=== PATIENT | male | born 1995 ===

== ENCOUNTER 2016-05-28 07:51 | Emergency (ER) | payer OTHER ==
--- NOTE | 2016-05-28 08:28 | UC ---
Hand/Wrist HPI - HPI Summary HPI Summary: The patient comes in today for: 1. Right index finger subungual hematoma: Onset: 9 hours ago. Palliative/provocative: Pressure to finger made it worse. Quality: Pressure, throbbing. Region: Right index finger. Severity: 8/10 Time: Constant. Associated symptoms: No bleeding. Previous treatment: Tylenol. * - History Of Current Complaint Chief Complaint: UCUpperExtremity Stated Complaint: CRUSHED FINGER Time Seen by Provider: 05/28/16 08:21 Hx Obtained From: Patient ?: No - Allergies/Home Medications Allergies/Adverse Reactions: Allergies Allergy/AdvReac Type Severity Reaction Status Date / Time No Known Allergies Allergy Verified 05/28/16 07:55 Home Medications: Home Medications Acetaminophen [Tylenol] 325 mg PO SEE INSTRUCTIONS PRN 05/28/16 [History Confirmed 05/28/16] PMH/Surg Hx/FS Hx/Imm Hx Previously Healthy: No Endocrine History Of: Denies: Diabetes, Thyroid Disease, Hyperthyroidism, Hypothyroidism, Dyslipidemia Cardiovascular History Of: Denies: Cardiac Disorders, Hypertension, Pacemaker/ICD, Myocardial Infarction , Congestive Heart Failure, Atrial Fibrillation, Deep Vein Thrombosis, Bleeding Disorders Respiratory History Of: Reports: Asthma - Does not take an inhaler on a regular basis. Denies: COPD, Bronchitis, Pneumonia, Pulmonary Embolism GI/ History Of: Denies: Gastroesophageal Reflux, Ulcer, Gastrointestinal Bleed, Gall Bladder Disease, Kidney Stones, Diverticulitis, Renal Disease, Urosepsis Neurological History Of: Denies: TIA, CVA, Dementia, Seizures, Migraine Psychological History Of: Denies: Anxiety, Depression, Bipolar Disorder, Schizophrenia, Post Traumatic Stress Disorder Cancer History Of: Denies: Lung Cancer, Colorectal Cancer, Breast Cancer, Prostate Cancer, Cervical Cancer Other History Of: Negative For: HIV, Hepatitis B, Hepatitis C, Anticoagulant Therapy - Surgical History Surgical History: Yes Surgery Procedure, Year, and Place: septoplasty - Family History Known Family History: Negative: Cardiac Disease, Hypertension - Social History Occupation: Student Alcohol Use: Weekly Alcohol Amount: weekends Substance Use Type: Marijuana Substance Use Comment - Amount & Last Used: weekends Smoking Status (MU): Never Smoked Tobacco - Immunization History Most Recent Influenza Vaccination: none Review of Systems Constitutional: Negative Skin: Negative Eyes: Negative ENT: Negative Respiratory: Negative Cardiovascular: Negative Gastrointestinal: Negative Genitourinary: Negative All Other Systems Reviewed And Are Negative: Yes Physical Exam Triage Information Reviewed: Yes Appearance: Well-Appearing, No Pain Distress, Well-Nourished Vital Signs: Initial Vital Signs Temp 98.7 F 05/28/16 07:57 Pulse 73 05/28/16 07:57 Resp 18 05/28/16 07:57 BP 129/67 05/28/16 07:57 Pulse Ox 99 05/28/16 07:57 Vital Signs Reviewed: Yes Eyes: Positive: Conjunctiva Clear. Negative: Discharge ENT: Positive: Hearing grossly normal. Negative: Pharyngeal erythema, Nasal congestion, Nasal drainage, TM bulging, TM dull, TM red, Tonsillar swelling, Tonsillar exudate Dental: Negative: Gross Decay/Caries @, Dental Fracture @ Neck: Positive: Supple, Nontender, No Lymphadenopathy. Negative: Nuchal Rigidity Respiratory: Positive: Chest non-tender, No respiratory distress, No accessory muscle use. Negative: Lungs clear, Crackles, Wheezing Cardiovascular: Positive: RRR, No Murmur Abdomen Description: Positive: Nontender, No Organomegaly, Soft. Negative: Distended, Guarding Musculoskeletal: Positive: Strength Intact, ROM Intact, Other: - Right index finger: There is bluish discoloration of the nail. Hot wiring it did produce blood oozing from the opening. There was edema and mild swelling of the pad of the finger. Neurological: Positive: Alert, Muscle Tone Normal Psychological: Positive: Age Appropriate Behavior, Consolable Skin: Positive: Other - Skin tear, right index finger, 3 x 3 mm.. Negative: rashes, breakdown Diagnostics - Radiology No standard instances Xray Interpretation: No Acute Changes Radiology Interpretation Completed By: Radiologist Hand/Wrist Course/Dx - Course Course Of Treatment: The patient had a hole put in the nail. Blood oozed out. There was a skin tear on the pad of the finger which was glued shut which was about 3 mm by 3 mm. He was given a ketorolac injection. Pain dropped from 8/ 10 to 3/10. - Differential Dx/Diagnosis Provider Diagnoses: Subungual hematoma right index finger, and skin tear. Crush injury. Discharge - Discharge Plan Condition: Stable Disposition: HOME Patient Education Materials: Skin Tear (ED), Skin Adhesive Care (ED), Subungual Hematoma (ED) Forms: *School Release Referrals: [facility] [place] PHYSICIAN REFERRAL [Outside] Additional Instructions: Inspect the finger daily. Gently clean. Apply Polysporin (which you can get over the counter without a prescription) and apply bandage. If there is any increase in pain, drainage, swelling or swelling, please be seen sooner. Please see your primary care provider or the student [facility] center next week to see how well you are doing. If you don't have a primary care provider, please contact the physician referral service. If you can't get in timely, please you may come back to see us until you can. If you get worse, please be seen sooner by us or the ER.
[2016-05-28] MEDS ORDERED: Ketorolac INJ* 60 MG/2 ML VIAL IM ONE (08:35)
--- NOTE | 2016-05-28 08:58 | RAD ---
INDICATION: Right second digit pain after crush type injury COMPARISON: None TECHNIQUE: AP, lateral, and oblique views were obtained. FINDINGS: The bony structures, joint spaces, and soft tissues are normal for age. IMPRESSION: NO ACUTE FRACTURE.
== END 2016-05-28 09:41 | disposition home or self-care (01) ==
LOC: UCEAST 07:51
DX: S60.021A Contusion of right index finger without damage to nail, initial encounter (principal); W23.0XXA Caught, crushed, jammed, or pinched between moving objects, initial encounter; Y93.9 Activity, unspecified; Y92.9 Unspecified place or not applicable; F12.90 Cannabis use, unspecified, uncomplicated
CPT/HCPCS: 73140; 96372; 99202; G0463; J1885

== ENCOUNTER 2016-06-03 18:46 | Emergency (ER) | payer OTHER ==
--- NOTE | 2016-06-03 20:29 | RAD ---
INDICATION: Right second finger injury COMPARISON: None TECHNIQUE: AP, lateral, and oblique views were obtained. FINDINGS: There is no acute fracture or dislocation. There is soft tissue swelling about the nailbed. IMPRESSION: NO ACUTE FRACTURE.
[2016-06-03] MEDS ORDERED: Cephalexin CAP* 500 MG PO ONE (21:25)
--- NOTE | 2016-06-03 22:13 | UC ---
clotilde Menjivar Timothy, scribed for Zuri Martin DO on 06/03/16 at 1924 . HPI Wound/Suture Re-check - HPI Summary HPI Summary: Tu Ramachandran is a 20 yo male presenting to [facility] for a recheck of a cut finger for which he was seen on 05/28/16. The area was glued. Pt states he has been changing the bandage, and noticed that the finger is swollen with increased pain to 3/10 ache since yesterday. He also reports fever of 101, and numbness on the posterior aspect of his finger since yesterday. He also reports poor appetite, fatigue, and light NINA since yesterday with mild sore throat and non- productive cough and nausea. He states he does not spend much time outside, and thinks it is very unlikely that he has had any tick exposure. His HMx includes asthma and marijuana use. - History Of Current Complaint Stated Complaint: SOFT TISSUE COMPLAINT Time Seen by Provider: 06/03/16 19:47 Hx Obtained From: Patient Onset/Duration: Sudden Onset, Lasting Days, Still Present Surgical Site: right index finger Severity: Moderate Pain Intensity: 3 Pain Scale Used: 0-10 Numeric - Allergies/Home Medications Allergies/Adverse Reactions: Allergies Allergy/AdvReac Type Severity Reaction Status Date / Time No Known Allergies Allergy Verified 06/03/16 19:03 PMH/Surg Hx/FS Hx/Imm Hx Endocrine History Of: Denies: Diabetes, Thyroid Disease, Hyperthyroidism, Hypothyroidism, Dyslipidemia Cardiovascular History Of: Denies: Cardiac Disorders, Hypertension, Pacemaker/ICD, Myocardial Infarction , Congestive Heart Failure, Atrial Fibrillation, Deep Vein Thrombosis, Bleeding Disorders Respiratory History Of: Reports: Asthma - Does not take an inhaler on a regular basis. Denies: COPD, Bronchitis, Pneumonia, Pulmonary Embolism GI/ History Of: Denies: Gastroesophageal Reflux, Ulcer, Gastrointestinal Bleed, Gall Bladder Disease, Kidney Stones, Diverticulitis, Renal Disease, Urosepsis Neurological History Of: Denies: TIA, CVA, Dementia, Seizures, Migraine Psychological History Of: Denies: Anxiety, Depression, Bipolar Disorder, Schizophrenia, Post Traumatic Stress Disorder Cancer History Of: Denies: Lung Cancer, Colorectal Cancer, Breast Cancer, Prostate Cancer, Cervical Cancer Other History Of: Negative For: HIV, Hepatitis B, Hepatitis C, Anticoagulant Therapy - Surgical History Surgical History: Yes Surgery Procedure, Year, and Place: novoplasty - Family History Known Family History: Negative: Cardiac Disease, Hypertension, Diabetes - Social History Occupation: Student Alcohol Use: Weekly Alcohol Amount: weekends Substance Use Type: Marijuana Substance Use Comment - Amount & Last Used: weekends Smoking Status (MU): Never Smoked Tobacco - Immunization History Most Recent Influenza Vaccination: none Review of Systems Constitutional: Fever, Fatigue Skin: Other - crush injury to finger Eyes: Negative ENT: Sore Throat Respiratory: Negative Cardiovascular: Negative Gastrointestinal: Other - loss of appetite, nausea Genitourinary: Negative Motor: Negative Neurovascular: Negative Musculoskeletal: Edema - right index finger Neurological: Headache, Numbness - right index finger posterior aspect Psychological: Negative All Other Systems Reviewed And Are Negative: Yes Physical Exam Triage Information Reviewed: Yes Appearance: Well-Appearing, No Pain Distress, Well-Nourished Vital Signs: Initial Vital Signs Temp 99.7 F 06/03/16 18:56 Pulse 86 06/03/16 18:56 Resp 20 06/03/16 18:56 BP 110/61 06/03/16 18:56 Pulse Ox 100 06/03/16 18:56 Vital Signs Reviewed: Yes Eyes: Positive: Conjunctiva Clear. Negative: Discharge ENT: Positive: Hearing grossly normal, Pharyngeal erythema, Nasal congestion, TMs normal, Tonsillar swelling. Negative: Tonsillar exudate, Muffled/hoarse voice Neck: Positive: Supple, Nontender Respiratory: Positive: Lungs clear, Normal breath sounds, No respiratory distress, No accessory muscle use Cardiovascular: Positive: RRR, No Murmur Musculoskeletal Exam: Normal Neurological: Positive: Alert, Muscle Tone Normal Psychological Exam: Normal Psychological: Positive: Age Appropriate Behavior Skin: Positive: Other - subungual hematoma s/p release with swelling and redness around nail bed. lac on pad appears all but healed. no drain Diagnostics - Radiology Right index finger XR Xray Interpretation: No Acute Changes - IMPRESSION: NO ACUTE FRACTURE. Radiology Interpretation Completed By: Radiologist Procedures - Procedure Summary Procedure Summary: Release of paronychia was attempted with drawing needle. Drawing needle was used to push back cuticle on right index finger of Pt, however, no drainage was released. Re-Evaluation - Re-Evaluation First Eval Re-Evaluation Time: 20:55 Change: Unchanged Comment: Pt was informed of negative lab and imaging results. He is agreeable to current course of Tx. Course/Dx - Course Course Of Treatment: Tu Ramachandran is a 20 yo male presenting to [facility] with swelling, drainage, and pain increase in his right index finger which was glued after a laceration on 05/28/[address] Lloyd. After clinical examination and negative right index finger X-Ray, negative influenza A & B rapid tests, negative rapid strep test, he will be discharged home with paronychia, febrile illness and appropriate instructions. - Differential Dx - Laceration/Wound Differential Diagnoses: Other - lyme, flu strepparonychia Provider Diagnoses: paronychia, febrile illness Discharge - Discharge Plan Condition: Stable Disposition: HOME Prescriptions: Cephalexin CAP* [Keflex CAP*] 500 mg PO BID #19 cap Patient Education Materials: Paronychia (ED), Lyme Disease (ED) Forms: *School Release Referrals: GLADIS Powell [Medical Doctor] - 2 Days Additional Instructions: As discussed, the cause of your fever and malaise is not entirely clear at this time. Though you do have an infection in your nail bed, an infection of this nature does not adaquately account for does adequately account for your febrile illness. We have tested you for strep and influenza because you do have mild symptoms of cough, sore throat, and nausea. These tests were all negative. Another possibility is that you may have lyme disease but you GI an upper respiratory symptoms make this less likely. At this time, we will do some blood work, if we find any abnormalities you will be contacted. You should follow up here in 2 days for re-evaluation. Follow up sooner if your symptoms worsen or if you develop new ones. WE HAVE INCLUDED SOME INFORMATION ON LYME DISEASE FOR YOUR INFORMATION. YOU ARE BEING GIVEN THE FOLLOWING MED FOR THE INFECTION OF YOUR NAILBED. CEPHALEXIN: The antibiotic you've been prescribed is a member of the cephalosporin class. This type of antibiotic covers a wide variety of infections, including those of the skin, lungs, and urinary tract. It's useful for staph infections. This antibiotic is slightly similar to the penicillin family. In rare cases , a person who is allergic to penicillin will also be allergic to this medication. If you have had a severe allergic reaction to penicillin, and have not taken this antibiotic since that time, notify your doctor. Antibiotics which cover many germs ("broad spectrum" antibiotics) are more likely to cause diarrhea or "yeast" infections. Women prone to vaginal yeast problems may suffer an attack after taking this antibiotic. In infants, oral thrush (white spots "stuck" on the cheek) or yeast diaper rash may result. See your doctor if these problems occur. Call at once if you develop itching, hives , shortness of breath, or lightheadedness. ANY TIME YOU TAKE AN ANTIBIOTIC, IT IS IMPORTANT TO REPLENISH THE BODY'S BALANCE OF "GOOD" BACTERIA BY EATING HIGH QUALITY CULTURED FOOD SUCH YOGURT, SAURKRAUT OR HENRY CHI AND/OR TAKING A PROBIOTIC SUPPLEMENT. Follow up in 2 days for re-evaluation. This follow up visit is important, we want to know that you are improving. If you can not get in with your PCP, return here for re-evaluation. The documentation as recorded by the clotilde espinosa Timothy accurately reflects the service I personally performed and the decisions made by me, Zuri Martin DO.
[2016-06-04 15:06] LABS: Hematocrit 44 % (42-52); Hemoglobin 14.6 g/dl (14.0-18.0); Mean Corpuscular HGB Conc 33 g/dl (31-36); Mean Corpuscular Hemoglobin 27 pg (27-31); Mean Corpuscular Volume 81 fL (80-94); Mean Platelet Volume 12 um3 (7.4-10.4); Red Blood Count 5.35 10^6/ul (4.0-5.4); Red Cell Distribution Width 13 % (10.5-15); White Blood Count 12.5 10^3/ul (3.5-10.8)
[2016-06-04 15:20] LABS: Add Diff/Slide Review? Slide Review Added; Comments Flag Yes
[2016-06-04 16:38] LABS: Erythrocyte Sed Rate 23 mm/Hr (0-14)
== END 2016-06-03 21:29 | disposition home or self-care (01) ==
LOC: UCEAST 18:46
DX: L03.011 Cellulitis of right finger (principal); R50.9 Fever, unspecified; F12.90 Cannabis use, unspecified, uncomplicated
CPT/HCPCS: 36415; 73140; 85025; 85652; 86140; 87502; 87651; 99212; A9270-GY; G0463